=== PATIENT | female | born 1955 | race Caucasian/White ===

== ENCOUNTER 2018-08-23 06:18 | Inpatient (IN) | payer BC ==
[2018-08-23] VITALS (21 sets, daily range): BP systolic 100–131; BP diastolic 62–87; PULSE 80–109; RESP 11–23; Ht 160 cm; Wt 60.4 kg
[~2018-08-23] VITALS: Ht 160 cm; Wt 60.4 kg
[2018-08-23] MEDS ORDERED: CEFAZOLIN 1 GM INJ ONE (07:00)
[2018-08-23] MEDS ORDERED: ROCURONIUM 50 MG INJ ONE ×2 (07:00→09:15)
[2018-08-23] MEDS ORDERED: CEFAZOLIN 2 GM/50 ML (PMX) 50 ML IVPB ONE (07:00)
[2018-08-23] MEDS ORDERED: DESFLURANE 15 MIN ONE (07:00)
[2018-08-23] MEDS ORDERED: SOD CHLORIDE 0.9% 1,000 ML IV SCH (07:00)
[2018-08-23] MEDS ORDERED: AMLO-147 PO (07:22)
[2018-08-23] MEDS ORDERED: TRIA1CAP PO (07:23)
[2018-08-23] MEDS ORDERED: ALPR0.5T6 PO (07:24)
[2018-08-23] MEDS ORDERED: CEFA500C PO (07:25)
[2018-08-23] MEDS ORDERED: LIDOCAINE 1%/EPI (1:100,000) (MDV) 20 ML ONE ×2 (08:14→10:42)
[2018-08-23] MEDS ORDERED: GENTAMICIN 80 MG INJ ONE ×2 (08:15→10:59)
[2018-08-23] MEDS ORDERED: POLYMYXIN/BACITRACIN 1L IRRIG ONE (08:15)
[2018-08-23] MEDS ORDERED: MUPIROCIN 2% 22 GM OINT TOP ONE (08:30)
--- NOTE | 2018-08-23 09:12 | PREAC ---
Date/Time of Note Date/Time of Note DATE: 08/23/18 TIME: 09:10 Anesthesia Eval and Record Evaluation Time Pre-Procedure Interview DATE: 08/23/18 TIME: 09:10 Age 62 Sex female NPO: 8 hrs Preoperative diagnosis right breast cancer Planned procedure right mastectomy and lymph node dissection and breast reconstruction Past Medical History Past Medical History: Includes Cardio: HTN Psych: Anxiety Surgery & Anesthesia Issues No known issue Meds Anticoagulation: No Beta Leon within 24 hr: No Reason Beta Leon not given: Pt. not on B-Leon Reported Medications Cefadroxil Hydrate* (Cefadroxil*) 500 Mg Capsule, 500 MG PO BID 08/23/18 Alprazolam* (Alprazolam*) 0.5 Mg Tablet, 0.5 MG PO DAILY PRN for ANXIETY, TAB 08/23/18 Triamterene/Hydrochlorothiazid (Dyazide 37.5-25 Capsule) 1 Each Capsule, 1 EACH PO DAILY, CAP 08/23/18 Amlodipine Besylate* (Amlodipine Besylate*) 10 Mg Tablet, 10 MG PO DAILY, #30 TAB 08/23/18 Current Medications Sodium Chloride 1,000 ml @ 75 mls/hr [id number] IV ; Start 08/23/18 at 07:00; Stop 08/23/18 at 20:19 Meds reviewed: Yes Allergies Coded Allergies: No Known Allergy (Unverified , 08/21/18) Allergies Reviewed: Yes Labs/Studies Labs Reviewed: Reviewed by anesthesiologist test: N/A Pre-procedure Exam Last vitals Vital Signs Date Temp Pulse Resp B/P (MAP) Pulse Ox O2 O2 Flow FiO2 Time Delivery Rate 08/23/18 97.5 109 16 131/80 99 Room Air 07:26 (97) Airway: Adequate mouth opening, Adequate thyromental dist Mallampati: Mallampati III Teeth: Normal Lung: Normal Heart: Normal ASA Physical Status ASA physical status: 3 Emergency: None Pre-operative Attestations Prior to commencing anesthesia and surgery, the patient was re-evaluated, there was verification of: *The patient's identity *The results of appropriate recent lab work and preoperative vital signs *The above evaluation not changing prior to induction *Anesthetic plan, risk benefits, alternative and complications discussed with patient/family; questions answered; patient/family understands, accepts and wishes to proceed. NAREN FLOWERS DO Aug 23, 2018 09:12
[2018-08-23] MEDS ORDERED: FENTAnyl 50 MCG/ML VIAL ONE (09:15)
[2018-08-23] MEDS ORDERED: LIDOCAINE 1% (MDV) 20 ML INJ ONE (09:15)
[2018-08-23] MEDS ORDERED: MIDAZOLAM 1 MG/ML 2 ML INJ ONE (09:15)
[2018-08-23] MEDS ORDERED: PROPOFOL 20 ML ONE (09:15)
[2018-08-23] MEDS ORDERED: ONDANSETRON 4 MG INJ ONE (09:31)
[2018-08-23] MEDS ORDERED: DEXAMETHASONE 4 MG/ML 5 ML INJ ONE (09:31)
[2018-08-23] MEDS ORDERED: HYDROmorphONE 2 MG/ML SYG ONE (09:39)
[2018-08-23] MEDS ORDERED: PHENYLephrine (100 MCG/ML) 5ML SYG ONE (09:58)
[2018-08-23] MEDS ORDERED: BUPIVACAINE 0.25% (STERILE-PAK) 30 ML INJ INJ ONE (10:11)
[2018-08-23] MEDS ORDERED: BUPIVACAINE 0.25% (MPF) 30 ML INJ ONE (10:42)
--- NOTE | 2018-08-23 10:50 | SIPON ---
Date/Time of Note Date/Time of Note DATE: 08/23/18 TIME: 10:47 Operative Report Preoperative Diagnosis Multicentric right breast cancer Postoperative Diagnosis Same Operation/Procedure Performed Right modified radical mastectomy Surgeon see signature line behavioral health assistant Dr Abbott Second assist: JEANETTE COLLIER MD Anesthesia: general Estimated blood loss: 10 - 50 ml's Transfusion Required none Specimen Right breast and axillary contents Grafts/Implants none Complications none AMELIE MARTINEZ MD Aug 23, 2018 10:50
[2018-08-23] MEDS ORDERED: morphine 2 MG INJ IV PRN (11:00)
[2018-08-23] MEDS ORDERED: ONDANSETRON 4 MG INJ IV PRN (11:00)
[2018-08-23] MEDS ORDERED: KETOROLAC 30 MG INJ ONE (11:28)
--- NOTE | 2018-08-23 11:51 | OPR ---
DATE OF OPERATION: 08/23/2018 PREOPERATIVE DIAGNOSIS: Multicentric invasive cancer, right breast. POSTOPERATIVE DIAGNOSIS: Multicentric Invasive cancer, right breast. OPERATION PERFORMED: Right modified radical re-mastectomy with immediate reconstruction. ANESTHESIA: General. ANESTHESIOLOGIST: Dr. Murphy. SURGEON: Omega Bernal MD PLASTIC SURGEON: Dr. Boris Ibarra. GUN STOCK MAKER: Chris Abbott MD and Evan Mariano MD INDICATIONS FOR PROCEDURE: The patient is a 62-year-old female who underwent surveillance mammograph y and was found to have invasive cancer in her right breast. Biopsy confirmed the invasive cancer, t here was a second lesion in another quadrant which was also biopsied that also revealed invasive canc er. Based on the multicentricity of the disease, the patient was counseled as to the benefit of a ri ght modified radical mastectomy. She requested immediate reconstruction and was seen by Dr. Ibarra pr eoperatively and plans were made for immediate implant reconstruction with willower. The patient con sented and was scheduled for surgery. DESCRIPTION OF PROCEDURE: The patient was brought to the operating theater, placed under general ane sthesia. The right breast and axillary region was prepped and draped in usual sterile fashion. Dr. Ibarra fabricated a small incision around the nipple areolar complex including some additional overlyi ng skin of the breast more laterally. It was carried out with 15 blade scalpel. Subcutaneous tissue was dissected with cautery. Skin edges were then elevated with Allis Abdias clamps and skin flaps we re created using cautery, first superiorly to the clavicle, then medially to the sternal border, infe riorly to the inframammary fold and laterally until the latissimus dorsi muscle was identified throug hout its course. Mastectomy then took place from medial to lateral at the border of the pectoralis m ajor muscle, the pectoralis minor muscle was identified. The clavipectoral fascia was incised with b vu dissection along the chest wall. The long thoracic nerve was identified and kept out of harm's way. More superiorly, the axillary vein and thoracodorsal neurovascular bundle were identified and k ept out of harm's way. A level one node bearing tissue was then resected using the Voyant device, ta stephan great care to preserve as many intercostal brachial nerves as possible. Final connective tissue attachments at the latissimus dorsi muscle were then transected with cautery. Specimen was removed, oriented and sent for permanent pathologic analysis. The wound was irrigated. Minimal bleeding was controlled with cautery. At this point, control of the operation was turned over to Dr. Ibarra who p roceeded with placement of the willower. He will dictate his portion of the operation separately. T he total blood loss for Dr. Bernal' portion of the operation was approximately 50 mL, and there were n o complications. When Dr. Bernal left the room, the patient was hemodynamically stable. There were n o issues. Dictated By: OMEGA BERNAL MD TL/PETER Conf#: [id number] DID#: [id number] CC: OMEGA BERNAL MD;*EndCC*
[2018-08-23] MEDS ORDERED: SUGAMMADEX SODIUM 200 MG/2 ML VIAL IV ONE (12:15)
--- NOTE | 2018-08-23 12:47 | PAC ---
Date/Time of Note Date/Time of Note DATE: 08/23/18 TIME: 12:46 Post-Anesthesia Notes Post-Anesthesia Note Last documented vital signs Vital Signs Date Temp Pulse Resp B/P (MAP) Pulse Ox O2 O2 Flow FiO2 Time Delivery Rate 08/23/18 98 95 16 130/65 99 Room Air 1245 Activity: WNL Respiratory function: WNL Cardiovascular function: WNL Mental status: Baseline Pain reasonably controlled: Yes Hydration appropriate: Yes Nausea/Vomiting absent: Yes NAREN FLOWERS DO Aug 23, 2018 12:47
--- NOTE | 2018-08-23 12:48 | OPPN ---
Date/Time of Note Date/Time of Note DATE: 08/23/18 TIME: 12:37 Operative Report Preoperative Diagnosis Right Breast Cancer, Immediately Post Right Mastectomy by Dr. Bernal Postoperative Diagnosis Right Breast Cancer, Immediately Post Right Mastectomy by Dr. Bernal Operation/Procedure Performed Immediate First Stage Right Breast Reconstruction Using Subpectoral Tissue Gymnastics Instructor and Acellular Dermal Matrix (Surgimend from Integra) Surgeon Murphy Ibarra M.D. accounting administrative assistant Chris Abbott M.D. Anesthesia: general (E.T.I., Bj Phillips M.D. + 80 ml. of 0.5% Lidocain, 0.125% Marcain, and 1/200,000 Epinephrine Local Anesthetic), other Estimated blood loss: 0 - 10 ml's Transfusion Required none Specimen None Grafts/Implants Gymnastics Instructor: Kanwal, Ref. [id number], SN: [id number], 300cc Artoura, High Profile (Total N.S.: 230 ml.) Acellular Dermal Matrix(A.D.M.): Integra: SurgiMend PRS, Ref: [id number] (8cm. X 16cm.) Lot#: [id number] Complications none MURPHY IBARRA MD Aug 23, 2018 12:48
[2018-08-23] MEDS ORDERED: hydrALAzine 20 MG INJ IV PRN ×2 (13:00→15:00)
[2018-08-23] MEDS ORDERED: HYDROmorphONE 1 MG/5 ML IV SYRINGE IV PRN (13:00)
[2018-08-23] MEDS ORDERED: LABETALOL HCL 20MG INJ IV PRN (13:00)
--- NOTE | 2018-08-23 14:00 | OPR ---
DATE OF OPERATION: 08/23/2018 PREOPERATIVE DIAGNOSIS: Right breast cancer, immediately post right mastectomy by Dr. Bernal. POSTOPERATIVE DIAGNOSIS: Right breast cancer, immediately post right mastectomy by Dr. Bernal. OPERATION PERFORMED: Immediate first stage right breast reconstruction using subpectoral tissue expa nder (Artoura) and acellular dermal matrix (ADM by Surgimend from Integra). SURGEON: Murphy Ibarra MD PURCHASING AGENT: Chris Abbott MD ANESTHESIA: General endotracheal intubation. ANESTHESIOLOGIST: Bj Murphy, DO with 80 mL of 0.5% lidocaine, 0.125% Marcaine and 1:200,000 ep inephrine solution. ESTIMATED BLOOD LOSS: 5 mL. SPECIMENS: None. DRAINS: Terence-Rutledge 10 mm flat (x1). IMPLANTS USED: 1. Tissue currency machine operator by [employer], reference #TEXP 110RH, serial number [id number], 300 mL Artoura, high profile (total of normal saline in tissue currency machine operator implant 230 mL). 2. Acellular dermal matrix (ADM) Integra Surgimend PRS reference #[id number] (8 x 16 cm), lot #[id number]. COMPLICATIONS: None. DRESSING: Bactroban cream, dry sterile dressing, Tegaderm, ABD and mammary support. OPERATIVE PROCEDURE: Patient received 2 grams of intravenous Ancef and 160 mg of intravenous gentami teja as preoperative antibiotic. In the waiting room, with the patient in sitting position, markings were made for the planned procedure. Next, in the operating room with the patient in supine position , following adequate monitoring and induction of adequate level of general anesthesia using endotrach eal intubation by Dr. Murphy, anesthesiologist, operation was begun by performing a modified radica l right mastectomy by Dr. Bernal. Following completion of mastectomy by Dr. Bernal, I proceeded with t he reconstruction immediately; first operative area was irrigated using copious amount of triple anti biotic solution. Hemostasis was carefully checked and assured using electrocoagulation. The inferio r insertion of the pectoralis major muscle was elevated and a sling of ADM in the form of a hammock w as placed attaching to the chest wall at the inframammary fold level, and to the inferior border of p ectoralis major muscle superiorly, the tissue currency machine operator implant was primed with 50 mL of injectable no rmal saline using aseptic fluid transfer set provided by [employer] as a closed delivery syst em. All the air was removed. The implant was inserted inside the pocket and the tabs were fixed to the chest wall using 2-0 Monocryl sutures. The tissue currency machine operator implant and the ADM were immersed in a triple antibiotic solution for over 1 hour prior to their use. The closure of the muscle ADM pocke t was performed as volume of the tissue currency machine operator was gradually increasing up to 230 mL that provided adequate initial fill of the tissue currency machine operator with adequate closure of the pocket. A 10 mm flat Jacks on-Rutledge drain was inserted via a stab incision over the anterior axillary line, inferior to the righ t inframammary fold. This was passed through subcutaneous tissue for about 12 cm and then entered th e axillary area from where it entered the apex of the pocket. This was fixed to the skin using a sin gle suture of 3-0 Monocryl. Following assurance of adequate hemostasis, skin closure was performed u sing interrupted and continuous stitches of 2-0 Monocryl. Repair was found to be satisfactory upon i ts completion. Dressing was applied as mentioned above, followed by mammary support. All counts wer e checked and reported to be correct prior to closure. Patient tolerated this procedure very well an d left the operating room to the recovery room awake, stable and in comfortable, satisfactory and ext ubated condition. Dictated By: MURPHY NDIAYE/PETER Conf#: [id number] DID#: [id number] CC: AMELIE BERNAL MD;*EndCC*
--- NOTE | 2018-08-23 14:27 | HP ---
Date/Time of Note Date/Time of Note DATE: 08/23/18 TIME: 14:23 Assessment/Plan VTE Prophylaxis Risk score (from Ns)>0 risk: 7 SCD applied (from [facility] [place]): Yes Pharmacological prophylaxis: NA/contraindicated Pharm contraindication: surgical contra Lines/Catheters IV [facility]from [facility] Saline Lock Urinary Cath still in place: Yes Reason Cath still needed: other (indicate) (Postoperative day 0) Assessment/Plan Assessment/Plan 62-year-old female with: 1. Status post radical modified right mastectomy with immediate reconstruction. Follow-up post surgical recommendations from Dr. Bernal and Dr Ibarra Incentive spirometer D/C [place] catheter by a.m. and encourage ambulation 2. Right breast CA, status post mastectomy. Further recommendations per surgery and oncology. 3. Hypertension; resume home medications 4. Anxiety disorder: Continue benzodiazepines as needed Prophylaxis: SCDs for DVT prophylaxis, Pepcid for GI prophylaxis. Disposition: Postoperative observation on medical surgical bed. HPI/ROS Admit Date/Time Admit Date/Time Aug 23, 2018 at 06:18 Hx of Present Illness Chief complaint: Elective radical right mastectomy History of presenting illness: 62-year-old female with history of hypertension, anxiety disorder and right breast cancer, patient today had modified radical right mastectomy with immediate reconstruction with Dr. Bernal and Dr Ibarra. Postoperatively patient is admitted to the medical floor for monitoring. She is currently complaining of nausea likely related to anesthesia. Vital signs remained stable. Internal medicine following regarding her underlying hypertension. Further postsurgical care per Dr. Bernal and Dr. Ibarra. ROS Constitutional: nausea Eyes: no complaints ENT: no complaints Respiratory: no complaints Cardiovascular: no complaints Gastrointestinal: no complaints Genitourinary: no complaints Musculoskeletal: no complaints Skin: no complaints Neurologic: no complaints Endocrine: no complaints Lymphatic: no complaints Psychological: no complaints PMH/Family/Social Past Medical History Hypertension Breast CA, right Medications Current Medications Ondansetron HCl (Zofran Inj) 4 mg Q6H PRN IV NAUSEA AND/OR VOMITING Last administered on 08/23/18at 13:20; Admin Dose 4 MG; Start 08/23/18 at 11:00 Potassium Chloride/Dextrose/ Sod Cl 1,000 ml @ 125 mls/hr Q8H IV ; Start 08/23/18 at 10:50 Morphine Sulfate (morphine) 2 mg Q1H PRN IV PAIN; Start 08/23/18 at 11:00 Acetaminophen 100 ml @ 400 mls/hr Q6H PRN IVPB PAIN; Start 08/23/18 at 11:00; Stop 08/24/18 at 10:59 Hydromorphone HCl (Dilaudid) 0.2 mg PACU PRN IV MILD PAIN LEVEL 1-3; Start 08/23/18 at 13:00; Stop 08/23/18 at 17:00 Labetalol HCl (Labetalol) 5 mg PACU ORDER PRN IV ELEVATED BLOOD PRESSURE; Start 08/23/18 at 13:00; Stop 08/23/18 at 17:00 Hydralazine HCl (Apresoline) 5 mg PACU ORDER PRN IV ELEVATED BLOOD PRESSURE; Start 08/23/18 at 13:00; Stop 08/23/18 at 17:00 Coded Allergies: No Known Allergy (Unverified , 08/21/18) Past Surgical History Status post core biopsy right breast x2 today Status post right modified radical mastectomy with immediate reconstruction today, 08/23/18 Social History Alcohol Use: other (Daily cocktails and wine) Smoking Status: Never smoker Drug Use: none Exam/Review of Systems Vital Signs Vitals Vital Signs Date Temp Pulse Resp B/P (MAP) Pulse Ox O2 O2 Flow FiO2 Time Delivery Rate 08/23/18 98.0 13:39 08/23/18 Simple 10.0 13:01 Mask 08/23/18 88 13 127/79 97 12:56 (95) Exam Constitutional: alert, oriented, well developed Respiratory: clear to auscultation, other (Limited exam, patient is status post right mastectomy with multiple dressing and bandages in place. However clear to auscultation.) Cardiovascular: regular rate and rhythm, nl pulses Gastrointestinal: soft, non-tender Musculoskeletal: nl extremities to inspection, nl gait and stance Extremities: normal pulses, other (No edema, clubbing or cyanosis) Neurological: SUPERVISOR CANVAS PRODUCTS II-XII intact, nl mental status, nl speech, nl strength SREEDHAR CARBAJAL Aug 23, 2018 14:27
[2018-08-23] MEDS ORDERED: ALPRAZOLAM 0.5 MG TAB PO PRN (15:00)
[2018-08-23] MEDS: D5W-0.45 NACL + KCL 20 MEQ 1,000 ML IV SCH ×2 (15:28→18:50)
[2018-08-23] MEDS: CEFAZOLIN 1 GM/50 ML (PMX) 50 ML IVPB SCH (16:40)
[2018-08-23] MEDS ORDERED: CEFAZOLIN 1 GM/50 ML (PMX) 50 ML IVPB SCH (18:00)
[2018-08-23] MEDS: ACETAMINOPHEN 1000MG/100ML IV 100 ML IVPB PRN (19:15)
[2018-08-23] MEDS: FAMOTIDINE 20 MG TAB PO SCH (20:28)
[2018-08-24] MEDS: CEFAZOLIN 1 GM/50 ML (PMX) 50 ML IVPB SCH ×3 (00:08→14:06)
[2018-08-24] MEDS ORDERED: morphine 4 MG/ML VIAL IV PRN (00:30)
[2018-08-24] MEDS: D5W-0.45 NACL + KCL 20 MEQ 1,000 ML IV SCH (02:14)
[2018-08-24 05:00] VITALS: BP 117/71; PULSE 84; RESP 18
[2018-08-24] MEDS: FAMOTIDINE 20 MG TAB PO SCH (08:26)
[2018-08-24] MEDS: ACETAMINOPHEN 1000MG/100ML IV 100 ML IVPB PRN (08:27)
[2018-08-24] MEDS ORDERED: AMLODIPINE 10 MG TAB PO SCH (09:00)
[2018-08-24] MEDS ORDERED: MAGNESIUM SULFATE 3 GM in DEXTROSE 5% 100 ML IVPB ONE (10:00)
--- NOTE | 2018-08-24 10:23 | PN ---
Date/Time of Note Date/Time of Note DATE: 08/24/18 TIME: 10:19 Assessment/Plan VTE [place]axis [place] [facility] [place]: 9 [place] [facility] [place] Yes Pharmacological prophylaxis: NA/contraindicated Pharm contraindication: surgical contra Lines/Catheters IV [facility] (from [facility] Saline Lock Urinary Cath still in place: No Assessment/Plan Assessment/Plan 62-year-old female with: 1. Status post radical modified right mastectomy with immediate reconstruction. POD#1 Follow-up post surgical recommendations today. Patient doing well, pain controlled. On room air, afebrile. Continue incentive spirometer. From medical standpoint okay to discharge home today if general surgery clears patient. 2. Right breast CA, status post mastectomy. Further recommendations per surgery and oncology outpatient. 3. Hypertension: Blood pressure controlled on home medications. 4. Anxiety disorder: Continue benzodiazepines as needed. 5. Hypomagnesemia: Repleting today. Prophylaxis: SCDs for DVT prophylaxis, Pepcid for GI prophylaxis. Disposition: If okay with general surgery, from the medical standpoint, patient can be discharged home today with outpatient follow-up with general surgery and oncology. She will be given a prescription for [place] for severe pain otherwise she is instructed to take Tylenol. Result Diagram: 08/24/183 08/24/18 0453 Results 24hrs Laboratory Tests Test 08/24/18 04:53 White Blood Count 11.2 H Red Blood Count 3.97 L Hemoglobin 13.2 Hematocrit 39.1 Mean Corpuscular Volume 98.5 Mean Corpuscular Hemoglobin 33.2 H Mean Corpuscular Hemoglobin Concent 33.8 Red Cell Distribution Width 12.3 Platelet Count 189 Mean Platelet Volume 10.6 H Immature Granulocytes % 0.500 H Neutrophils % 88.1 H Lymphocytes % 8.0 L Monocytes % 3.3 Eosinophils % 0.0 Basophils % 0.1 Nucleated Red Blood Cells % 0.0 Immature Granulocytes # 0.060 H Neutrophils # 9.9 H Lymphocytes # 0.9 Monocytes # 0.4 Eosinophils # 0.0 Basophils # 0.0 Nucleated Red Blood Cells # 0.0 Sodium Level 136 Potassium Level 4.3 Chloride Level 102 Carbon Dioxide Level 26 Anion Gap 8 Blood Urea Nitrogen 16 Creatinine 0.67 Est Glomerular Filtrat Rate mL/min > 60 Glucose Level 181 Calcium Level 9.8 Magnesium Level 1.5 L Subjective 24 Hr Interval Summary Free Text/Dictation Patient doing well, no complaints today. She is anxious to go home. Exam/Review of Systems Vital Signs Vitals Vital Signs Date Temp Pulse Resp B/P (MAP) Pulse Ox O2 O2 Flow FiO2 Time Delivery Rate 08/24/18 98.2 84 18 117/71 94 Room Air 05:00 (86) 08/23/18 2.0 15:30 Intake and Output 08/23/18 08/23/18 08/24/18 1515:00 23:00 07:00 IntakeIntake Total 2500 ml 350 ml 1775 ml OutputOutput Total 400 ml 2840 ml 30 ml BalanceBalance 2100 ml -2490 ml 1745 ml Exam Constitutional: alert, oriented, well developed Respiratory: clear to auscultation, normal air movement Cardiovascular: regular rate and rhythm, nl pulses Gastrointestinal: soft, non-tender Musculoskeletal: nl extremities to inspection, nl gait and stance Extremities: normal pulses, other (No edema, clubbing or cyanosis) Neurological: CENTREX RADIO OPERATOR II-XII intact, nl mental status, nl speech, nl strength Additional Comments Status post right mastectomy with reconstruction, drain in place with serosanguineous output. Patient also has dressing in place. Medications Medications Current Medications Ondansetron HCl (Zofran Inj) 4 mg Q6H PRN IV NAUSEA AND/OR VOMITING Last administered on 08/23/18at 13:20; Admin Dose 4 MG; Start 08/23/18 at 11:00 Potassium Chloride/Dextrose/ Sod Cl 1,000 ml @ 125 mls/hr Q8H IV Last administered on 08/24/18at 02:14; Admin Dose 125 MLS/HR; Start 08/23/18 at 10:50 Acetaminophen 100 ml @ 400 mls/hr Q6H PRN IVPB PAIN Last administered on 08/24/18at 08:27; Admin Dose 400 MLS/HR; Start 08/23/18 at 11:00; Stop 08/24/18 at 10:59 Alprazolam (Xanax) 0.5 mg Q8 PRN PO ANXIETY; Start 08/23/18 at 15:00 Amlodipine Besylate (Norvasc) 10 mg DAILY PO ; Start 08/24/18 at 09:00 Hydralazine HCl (Apresoline) 10 mg Q8H PRN IV ELEVATED BLOOD PRESSURE; Start 08/23/18 at 15:00 Famotidine (Pepcid) 20 mg BID PO Last administered on 08/24/18at 08:26; Admin Dose 20 MG; Start 08/23/18 at 21:00 Cefazolin Sodium 50 ml @ 100 mls/hr Q6 IVPB Last administered on 08/24/18at 06:17; Admin Dose 100 MLS/HR; Start 08/23/18 at 16:25 Morphine Sulfate (morphine) 2 mg Q1H PRN IV PAIN Last administered on 08/24/18at 00:24; Admin Dose 2 MG; Start 08/24/18 at 00:30 Magnesium Sulfate 3 gm/Dextrose 106 ml @ 35.333 mls/ hr ONCE ONCE IVPB ; Start 08/24/18 at 10:00; Stop 08/24/18 at 12:59 SREEDHAR CARBAJAL Aug 24, 2018 10:22
--- NOTE | 2018-08-24 10:24 | PDOCDIS ---
Discharge Instructions CONDITION [id number] Patient Condition: [id number] Stable HOME CARE INSTRUCTIONS: [id number] Diet Instructions: [id number] Regular ACTIVITY: [id number] Activity Restrictions: Qiiiz1h Slowly Increase Activity FOLLOW UP/APPOINTMENTS Follow-up Plan Follow-up with general surgery and plastic surgery within 1-2 weeks Follow-up with primary care physician within 1 week Follow-up with outpatient oncologist if scheduled already. SREEDHAR CARBAJAL Aug 24, 2018 10:24
[2018-08-24] MEDS ORDERED: HYDR-3601 PO (10:25)
[2018-08-24] MEDS ORDERED: HYDROCODONE/APAP (5/325) TAB PO PRN ×2 (10:30)
--- NOTE | 2018-08-24 21:12 | PN ---
DATE: 08/24/2018 Postop day #1 status post right modified radical mastectomy and immediate reconstruction of the right breast with tissue economics teacher placement. SUBJECTIVE: Feels good. No complaint. OBJECTIVE: GENERAL: Awake, alert, oriented x3. VITAL SIGNS: Temperature maximum 98.2, heart rate 85, respirations 18, blood pressure 112/70, saturation 95% room air. HEART: Regular. LUNGS: Clear. ABDOMEN: Soft. CHEST: Dressings which is an sport bra is intact. LABORATORY DATA: WBC 11,200, hemoglobin 13.2, hematocrit 39.1. Differential 88% segmented. Chemistry: Sodium, potassium, BUN, creatinine within normal limits. Drainage from the wound Terence-Rutledge drain which was under the flaps on the right breast from the time of operation until today 7 in the morning has drained 220 mL fluid, and since morning from 6:00 a.m. until now, which is 3:00 p.m., it has drained about 50 mL, serosanguineous. Patient has been given prescription by Dr. Boris Ibarra, plastic surgeon, for antibiotic and pain medication. Patient to follow up with Dr. Boris Ibarra next week and also to see Dr. Bernal and call and make an appointment for that one, and also to see her primary care. From surgical point of view, the patient can be discharged home. Apparently the hospitalist from the insurance company also has seen the patient and she has discharged the patient as well. All instruction for drainage and the care of the Terence-Rutledge was given to the patient and her , who stated that he understood and he is able to do it and he is going to write down the drainage every day and record it. Dictated By: YASHIRA SINGER MD PS/NTS Conf#: [id number] DID#: [id number] CC: AMELIE BERNAL MD;*EndCC* MTDD
--- NOTE | 2018-08-25 10:27 | DS ---
Date/Time of Note Date/Time of Note DATE: 08/25/18 TIME: 10:23 Discharge Summary Admission/Discharge Info Admit Date/Time Aug 23, 2018 at 06:18 Discharge Date/Time Aug 24, 2018 at 15:30 Discharge Diagnosis 1. Status post radical modified right mastectomy with immediate reconstruction. 2. Right breast CA, status post mastectomy. 3. Hypertension. 4. Anxiety disorder. Patient Condition: Stable Consults Dr. Bernal, general surgery Dr. Ibarra, plastic surgery Procedures Modified radical right mastectomy with immediate reconstruction Hx of Present Illness Chief complaint: Elective radical right mastectomy History of presenting illness: 62-year-old female with history of hypertension, anxiety disorder and right breast cancer, patient today had modified radical right mastectomy with immediate reconstruction with Dr. Bernal and Dr Ibarra. Postoperatively patient is admitted to the medical floor for monitoring. She is currently complaining of nausea likely related to anesthesia. Vital signs remained stable. Internal medicine following regarding her underlying hypertension. Further postsurgical care per Dr. Bernal and Dr. Ibarra. Hospital Course Patient was observed on medical surgical bed, she had some nausea and symptoms consistent with vertigo right away postoperatively, it did resolve by hospital day #2. Pain was controlled with Tylenol and low-dose oral [place]. Patient was seen by general surgery and cleared for discharge. She was discharged with [place] as needed. She is to follow-up with Dr. Bernal/Dr. Ibarra within 1 to 2 weeks Home Meds Active Scripts Hydrocodone Bit-Acetaminophen (Hydrocodone Bit-APAP) 5-325MG Tablet, 1 TAB PO Q6 H PRN for PAIN, #30 TAB Prov:SREEDHAR CARBAJAL 08/24/18 Reported Medications Alprazolam* (Alprazolam*) 0.5 Mg Tablet, 0.5 MG PO DAILY PRN for ANXIETY, TAB 08/23/18 Triamterene/Hydrochlorothiazid (Dyazide 37.5-25 Capsule) 1 Each Capsule, 1 EACH PO DAILY, CAP 08/23/18 Amlodipine Besylate* (Amlodipine Besylate*) 10 Mg Tablet, 10 MG PO DAILY, #30 TAB 08/23/18 Discontinued Reported Medications Cefadroxil Hydrate* (Cefadroxil*) 500 Mg Capsule, 500 MG PO BID 08/23/18 Follow-up Plan Follow-up with general surgery and plastic surgery within 1-2 weeks Follow-up with primary care physician within 1 week Follow-up with outpatient oncologist if scheduled already. Primary Care Provider Not On Staff Doctor Time spent on discharge: > 30 minutes SREEDHAR CARBAJAL Aug 25, 2018 10:27
== END 2018-08-24 15:30 | disposition home or self-care (01) | DRG 583 ==
LOC: REC 06:18 → MS1 13:45
PROVIDERS: ADMIT Surgery Surgical Oncology; ATTEND Surgery Surgical Oncology
PROC: 0HUT0KZ Supplement Right Breast with Nonautologous Tissue Substitute, Open Approach (ICD-10-PCS; 2018-08-23)
PROC: 0HHT0NZ Insertion of Tissue Expander into Right Breast, Open Approach (ICD-10-PCS; 2018-08-23)
PROC: 0HTT0ZZ Resection of Right Breast, Open Approach (ICD-10-PCS; principal; 2018-08-23 09:00)
PROC: 07T50ZZ Resection of Right Axillary Lymphatic, Open Approach (ICD-10-PCS; 2018-08-23 09:00)
DX: C50.911 Malignant neoplasm of unspecified site of right female breast (principal); I10 Essential (primary) hypertension; F41.9 Anxiety disorder, unspecified; E83.42 Hypomagnesemia
CPT/HCPCS: 80048; 83735; 85025; 87086; 88307; J0131; J0690; J1100; J1170; J1580; J1885; J2250; J2270; J2370; J2405; J3010; J3475; J3480; J7030